=== PATIENT | female | born 1960 | race Caucasian/White ===

== ENCOUNTER → 2016-05-17 | Outpatient (CLI) | payer MEDICARE, OTHER ==
[~2016-05-17] MED LIST: ALBU0.086 NEB; ALBU2.5I INH; ANTISOL30 EACH EAR; CALCCHW25 PO; CHOL50006 PO; DUONI NEB; FLON0.053; FOSA70TA PO; HYCO5UDC PO; MEDR4PAK3 PO; MMW SS; NEXI40CA PO
[2016-05-17 11:00] LABS: AUTOMATED NEUTROPHIL # 4.6 TH/MM3 (1.8-7.7); BASOPHIL # 0.1 TH/MM3 (0-0.2); BASOPHIL % 0.9 % (0.0-2.0); EOSINOPHIL # 0.1 TH/MM3 (0-0.4); EOSINOPHIL % 1.7 % (0.0-4.0); HEMATOCRIT 40.2 % (35.0-46.0); HEMO FLAGS DIFF FINAL; LYMPH % 35.1 % (9.0-44.0); LYMPHOCYTE # 2.9 TH/MM3 (1.0-4.8); MEAN CELL VOLUME 92.3 FL (80.0-100.0); MEAN CORPUSCULAR HEMOGLOBIN 32.1 PG (27.0-34.0); MEAN CORPUSCULAR HGB CONC 34.8 % (32.0-36.0); MONO % 7.5 % (0.0-8.0); NEUT % 54.8 % (16.0-70.0); PLATELET COUNT 247 TH/MM3 (150-450); RED BLOOD COUNT 4.36 MIL/MM3 (4.00-5.30); RED CELL DISTRIBUTION WIDTH 13.6 % (11.6-17.2); WHITE BLOOD COUNT 8.3 TH/MM3 (4.0-11.0)
[2016-05-17 11:01] LABS: BLOOD, URINE SMALL (NEG); CALCIUM OXALATE CRYSTALS,URINE OCC /hpf; GLUCOSE,URINE NEG (NEG); KETONE, URINE NEG (NEG); MUCUS URINE FEW /lpf (OCC); NITRITE,URINE NEG (NEG); PH, URINE 5.5 (5.0-8.5); SQUAMOUS EPITHELIAL CELL URINE 1 /hpf (0-5); URINE COLOR YELLOW (YELLW/STRAW)
[2016-05-17 11:02] LABS: COMMENT (UR) CULT NOT INDICATED; CULTURE IF INDICATED CULT NOT INDICATED
[2016-05-17 11:46] LABS: ALKALINE PHOSPHATASE 78 U/L (45-117); ALT (GPT) 25 U/L (10-53); ANION GAP 7 MEQ/L (5-15); AST (GOT) 16 U/L (15-37); BICARBONATE 27.9 MEQ/L (21.0-32.0); BLOOD UREA NITROGEN 13 MG/DL (7-18); CHLORIDE 105 MEQ/L (98-107); FREE T4 0.95 NG/DL (0.76-1.46); GLOMERULAR FILTRATION RATE 97 ML/MIN (>89); GLUCOSE,FASTING 96 MG/DL (74-99); HDL CHOLESTEROL 70.5 MG/DL (40.0-60.0); LDL CHOLESTEROL 25 MG/DL (0-99); POTASSIUM 3.9 MEQ/L (3.5-5.1); SODIUM (NA) 140 MEQ/L (136-145); TOTAL BILIRUBIN ADULT 0.2 MG/DL (0.2-1.0)
== END ==
LOC: CLAB 10:23
PROVIDERS: ATTEND Family Medicine
DX: E78.5 Hyperlipidemia, unspecified (principal); E78.00 Pure hypercholesterolemia, unspecified; D51.9 Vitamin B12 deficiency anemia, unspecified; D52.9 Folate deficiency anemia, unspecified; R82.90 Unspecified abnormal findings in urine; R53.81 Other malaise; R94.6 Abnormal results of thyroid function studies; E03.9 Hypothyroidism, unspecified; E55.9 Vitamin D deficiency, unspecified; N30.90 Cystitis, unspecified without hematuria; Z79.899 Other long term (current) drug therapy; Z01.01 Encounter for examination of eyes and vision with abnormal findings
CPT/HCPCS: 36415; 80053; 80061; 81001; 82306; 82607; 82746; 84439; 84443; 85025

== ENCOUNTER → 2016-08-29 | Outpatient (CLI) | payer MEDICARE, OTHER ==
[2016-08-29 08:56] LABS: AUTOMATED NEUTROPHIL # 4.5 TH/MM3 (1.8-7.7); BASOPHIL % 0.6 % (0.0-2.0); EOSINOPHIL # 0.1 TH/MM3 (0-0.4); EOSINOPHIL % 1.7 % (0.0-4.0); HEMATOCRIT 41.2 % (35.0-46.0); HEMO FLAGS DIFF FINAL; LYMPH % 28.4 % (9.0-44.0); LYMPHOCYTE # 2.1 TH/MM3 (1.0-4.8); MEAN CELL VOLUME 92.4 FL (80.0-100.0); MEAN CORPUSCULAR HEMOGLOBIN 31.3 PG (27.0-34.0); MEAN CORPUSCULAR HGB CONC 33.8 % (32.0-36.0); MONO % 8.8 % (0.0-8.0); NEUT % 60.5 % (16.0-70.0); PLATELET COUNT 237 TH/MM3 (150-450); RED BLOOD COUNT 4.46 MIL/MM3 (4.00-5.30); RED CELL DISTRIBUTION WIDTH 13.1 % (11.6-17.2); WHITE BLOOD COUNT 7.5 TH/MM3 (4.0-11.0)
[2016-08-29 09:11] LABS: ALT (GPT) 19 U/L (10-53); AMYLASE 40 U/L (25-115); ANION GAP 7 MEQ/L (5-15); AST (GOT) 14 U/L (15-37); BICARBONATE 27.8 MEQ/L (21.0-32.0); BLOOD UREA NITROGEN 10 MG/DL (7-18); CHLORIDE 105 MEQ/L (98-107); GLOMERULAR FILTRATION RATE 114 ML/MIN (>89); GLUCOSE,FASTING 92 MG/DL (74-99); POTASSIUM 4.1 MEQ/L (3.5-5.1); SODIUM (NA) 140 MEQ/L (136-145)
[2016-08-29 09:36] LABS: ALKALINE PHOSPHATASE 82 U/L (45-117); TOTAL BILIRUBIN ADULT 0.4 MG/DL (0.2-1.0)
[2016-08-29 09:39] LABS: WESTERGREN SEDIMENTATION RATE 23 mm/hr (0-30)
== END ==
LOC: CLAB 08:17
PROVIDERS: ATTEND Hospitalist
DX: K50.90 Crohn's disease, unspecified, without complications (principal)
CPT/HCPCS: 36415; 80053; 82150; 82306; 82607; 82746; 85025; 85652; 86140

== ENCOUNTER 2016-12-28 05:50 | Day surgery (SDC) | payer MEDICARE, OTHER ==
[~2016-12-28] VITALS: Ht 160 cm; Wt 63.0 kg
[2016-12-28] MEDS ORDERED: IOHEXOL 350 MG/ML 50 ML BTL (for Cath Lab) OTHER ONE (05:51)
[2016-12-28] MEDS ORDERED: ASPIRIN 81 MG CHEW TAB PO ONE (06:45)
[2016-12-28] MEDS ORDERED: HEPARIN-NS/PF INJ 1,000 ML ONE (07:19)
[2016-12-28] MEDS ORDERED: diphenhydrAMINE HCL 50 MG/ML VIAL ONE (07:30)
[2016-12-28] MEDS ORDERED: MIDAZOLAM HCL 2 MG/2 ML VIAL ONE (07:30)
[2016-12-28] MEDS ORDERED: AMLO5 PO (07:34)
[2016-12-28] MEDS ORDERED: VITA1000 PO (07:34)
[2016-12-28] MEDS ORDERED: LIPI10TA PO (07:34)
[2016-12-28] MEDS ORDERED: ISOS30TA3 PO (07:34)
[2016-12-28] MEDS ORDERED: ADVA100A INH (07:34)
[2016-12-28] MEDS ORDERED: VARE1 PO (07:34)
[2016-12-28] MEDS ORDERED: ESOM1CAP16 PO (07:34)
[2016-12-28] MEDS ORDERED: PRED10PA PO (07:34)
[2016-12-28] MEDS ORDERED: BUDE3CAP PO (07:34)
[2016-12-28] MEDS ORDERED: EFFE10TA PO (07:34)
[2016-12-28] MEDS ORDERED: SPIRCAP INH (07:34)
[2016-12-28] MEDS ORDERED: VITA100021 SL (07:34)
[2016-12-28] MEDS ORDERED: VENTAER INH (07:34)
[2016-12-28 07:39] VITALS: BP 149/87; PULSE 92; RESP 18; TEMP 98.1; O2SAT 97
[2016-12-28 07:57] LABS: AUTOMATED NEUTROPHIL # 5.1 TH/MM3 (1.8-7.7); BASOPHIL % 0.1 % (0.0-2.0); HEMATOCRIT 41.9 % (35.0-46.0); HEMO FLAGS DIFF FINAL; LYMPH % 14.5 % (9.0-44.0); LYMPHOCYTE # 0.9 TH/MM3 (1.0-4.8); MEAN CELL VOLUME 92.7 FL (80.0-100.0); MEAN CORPUSCULAR HEMOGLOBIN 31.8 PG (27.0-34.0); MEAN CORPUSCULAR HGB CONC 34.3 % (32.0-36.0); MONO % 0.9 % (0.0-8.0); NEUT % 84.5 % (16.0-70.0); PLATELET COUNT 231 TH/MM3 (150-450); RED BLOOD COUNT 4.51 MIL/MM3 (4.00-5.30); RED CELL DISTRIBUTION WIDTH 13.4 % (11.6-17.2); WHITE BLOOD COUNT 6.1 TH/MM3 (4.0-11.0)
[2016-12-28 08:13] LABS: BICARBONATE 27.4 MEQ/L (21.0-32.0); POTASSIUM 3.9 MEQ/L (3.5-5.1)
[2016-12-28 08:15] LABS: INTERNATIONAL NORMALIZED RATIO 0.9 RATIO; PROTHROMBIN TIME - PATIENT 9.8 SEC (9.8-11.6)
[2016-12-28] MEDS ORDERED: MISC INFORMATION XX ONE (08:30)
[2016-12-28] MEDS ORDERED: SODIUM CHLORIDE 0.9% FLUSH 10 ML FLUSH IV FLUSH PRN (08:45)
[2016-12-28] MEDS ORDERED: SODIUM CHLORIDE 0.9% FLUSH 10 ML FLUSH IV FLUSH SCH (09:00)
[2016-12-28] MEDS ORDERED: BACITRACIN OINT 0.9 GM PKT TOP ONE (09:30)
[2016-12-28 10:20] LABS: HDL CHOLESTEROL 95.8 MG/DL (40.0-60.0); INDIRECT BILIRUBIN 0.3 MG/DL (0.0-0.8); TOTAL BILIRUBIN ADULT 0.4 MG/DL (0.2-1.0)
--- NOTE | 2016-12-28 11:16 | MA ---
cc: AMEENA MEAD M.D. DATE: 12/28/2016 PROCEDURE 1. Right heart catheterization. 2. Left heart catheterization. 3. Left ventriculography. 4. Coronary angiography. INDICATION Anginal equivalent, severe dyspnea on exertion at 3 minutes of the Jamaal protocol, unstable angina, [place] [employer] Class III angina, [place] [employer] Class III congestive heart failure, systemic inflammatory condition, Crohn's disease, tobacco use, coronary artery disease. PROCEDURAL STATEMENTS The patient was brought to the cardiac catheterization laboratory and prepped and draped in the usual sterile fashion. 10 cc of 1% lidocaine was used to locally anesthetize the right common femoral artery. A 4 Jordanian sheath was successfully placed in the right common femoral artery, a 7 Jordanian sheath in right common femoral vein. Right heart catheterization was performed first with the following findings: Pulmonary capillary wedge pressure was 8/7-3. PA pressure 24/10-17. RV pressure 27/9-10. RA pressure 8/4-3. On room air the femoral artery sat was 94%. The pulmonary artery sat was 77.3%. The RA sat was 79.3%. The left heart catheterization was then performed with a 4 Jordanian JR4 and JL4 catheter with the following findings: LV pressure 170/0-5. Ejection fraction 75%. The right coronary artery is dominant. It is fibrocalcific fluoroscopically. In the proximal segment it has a long 50% prox-mid stenosis. The left main coronary artery is slightly fibrocalcific fluoroscopically, has no significant obstructive disease. The left circumflex vessel has no significant disease angiographically. The first obtuse marginal vessel is a large vessel which has a distal bifurcation and approaches the apex. It has a prox-mid 40% stenosis. It is mildly fibrocalcific at the segment of stenosis. The LAD is transapical. It has a long 50% prox-mid stenosis. The vessel is fibrocalcific in the prox-mid segment. The LAD is transapical. The mid to distal segment of the vessel is tortuous and has a focal 50% stenosis. CONCLUSIONS 1. Angiographically moderate three-vessel coronary artery disease in a right-dominant system as detailed above. 2. Fibrocalcific coronary artery disease in the prox-mid right coronary artery, prox-mid LAD and proximal OM as detailed above. 3. Hyperdynamic LV systolic function, ejection fraction 75%. 4. Normal right heart catheterization pressures as detailed above. 5. No evidence of intracardiac shunt by saturation analysis. PLAN/RECOMMENDATIONS 1. Strongly recommend smoking cessation and I have advised the patient myself personally to discontinue smoking. 2. I have advised the patient to start a baby aspirin 81 mg daily. 3. I have ordered fasting lipids, ALT and CPK in order to initiate statin therapy. 4. The patient will follow-up with me on December 31, 2016 for further evaluation and management as an outpatient. Ameena Mead MD AWCollin/BT /8:03 AM /10:51 AM
== END 2016-12-28 11:37 | disposition home or self-care (01) ==
LOC: HDOC 05:50 → HDIC 05:51 → HDOC 11:37
PROVIDERS: ATTEND Internal Medicine Interventional Cardiology
DX: I25.110 Atherosclerotic heart disease of native coronary artery with unstable angina pectoris (principal); K50.90 Crohn's disease, unspecified, without complications; Z72.0 Tobacco use
CPT/HCPCS: 80048; 80061; 80076; 82550; 85025; 85610; 93460; C1769; C1893; J1200; J1644; J2250; Q9967

== ENCOUNTER → 2017-02-25 | Outpatient (CLI) | payer MEDICARE, OTHER ==
[~2017-02-25] MED LIST changes: +ADVA100A INH; -ALBU0.086 NEB; -ALBU2.5I INH; +AMLO5 PO; -ANTISOL30 EACH EAR; +BUDE3CAP PO; -CALCCHW25 PO; -CHOL50006 PO; -DUONI NEB; +EFFE10TA PO; +ESOM1CAP16 PO; -FLON0.053; -FOSA70TA PO; -HYCO5UDC PO; +ISOS30TA3 PO; +LIPI10TA PO; -MEDR4PAK3 PO; -MMW SS; -NEXI40CA PO; +PRED10PA PO; +SPIRCAP INH; +VARE1 PO; +VENTAER INH; +VITA1000 PO; +VITA100021 SL
[2017-02-25 11:06] LABS: AUTOMATED NEUTROPHIL # 6.2 TH/MM3 (1.8-7.7); BASOPHIL # 0.1 TH/MM3 (0-0.2); BASOPHIL % 0.9 % (0.0-2.0); EOSINOPHIL # 0.1 TH/MM3 (0-0.4); EOSINOPHIL % 0.6 % (0.0-4.0); HEMOGLOBIN 14.4 GM/DL (11.6-15.3); LYMPH % 22.4 % (9.0-44.0); MEAN CELL VOLUME 93.9 FL (80.0-100.0); MEAN CORPUSCULAR HEMOGLOBIN 32.1 PG (27.0-34.0); MEAN CORPUSCULAR HGB CONC 34.2 % (32.0-36.0); MONO % 7.4 % (0.0-8.0); MONOCYTE # 0.7 TH/MM3 (0-0.9); NEUT % 68.7 % (16.0-70.0); PLATELET COUNT 221 TH/MM3 (150-450); RED BLOOD COUNT 4.48 MIL/MM3 (4.00-5.30); RED CELL DISTRIBUTION WIDTH 14.1 % (11.6-17.2)
[2017-02-25 11:22] LABS: ALBUMIN 3.5 GM/DL (3.4-5.0); AST (GOT) 17 U/L (15-37); BICARBONATE 27.3 MEQ/L (21.0-32.0); BLOOD UREA NITROGEN 13 MG/DL (7-18); CALCIUM 9.2 MG/DL (8.5-10.1); CHLORIDE 104 MEQ/L (98-107); CREATININE 0.71 MG/DL (0.50-1.00); GLOMERULAR FILTRATION RATE 85 ML/MIN (>89); GLUCOSE,FASTING 120 MG/DL (74-99); SODIUM (NA) 137 MEQ/L (136-145)
[2017-02-25 11:23] LABS: ALT (GPT) 22 U/L (10-53); CHOLESTEROL 166 MG/DL (120-200); TRIGLYCERIDES 108 MG/DL (42-150)
[2017-02-25 11:25] LABS: ALKALINE PHOSPHATASE 90 U/L (45-117); CHOLESTEROL/ HDL RATIO 1.72 RATIO; HDL CHOLESTEROL 96.4 MG/DL (40.0-60.0); LDL CHOLESTEROL 48 MG/DL (0-99); TOTAL BILIRUBIN ADULT 0.3 MG/DL (0.2-1.0); TOTAL PROTEIN 7.1 GM/DL (6.4-8.2)
== END ==
LOC: CLAB 10:31
PROVIDERS: ATTEND Family Medicine
DX: E78.00 Pure hypercholesterolemia, unspecified (principal); I10 Essential (primary) hypertension; Z79.891 Long term (current) use of opiate analgesic
CPT/HCPCS: 36415; 80053; 80061; 85025

== ENCOUNTER → 2017-03-06 | Outpatient (CLI) | payer MEDICARE, OTHER ==
[2017-03-06 10:03] LABS: ALBUMIN 3.6 GM/DL (3.4-5.0); C-REACTIVE PROTEIN 0.33 MG/DL (0.00-0.30); DIRECT BILIRUBIN ADULT 0.1 MG/DL (0.0-0.2)
[2017-03-06 10:05] LABS: INDIRECT BILIRUBIN 0.2 MG/DL (0.0-0.8); TOTAL BILIRUBIN ADULT 0.3 MG/DL (0.2-1.0); TOTAL PROTEIN 7.3 GM/DL (6.4-8.2)
[2017-03-08 20:17] LABS: MITOGEN MINUS NIL RESULT 7.88 IU/mL; NIL RESULT 0.03 IU/mL; QUANTIFERON TB GOLD RESULT Negative (Negative)
== END ==
LOC: CLAB 08:11
PROVIDERS: ATTEND Internal Medicine Gastroenterology
DX: K50.90 Crohn's disease, unspecified, without complications (principal); R10.32 Left lower quadrant pain; K52.9 Noninfective gastroenteritis and colitis, unspecified
CPT/HCPCS: 36415; 80076; 86140; 86480

== ENCOUNTER → 2017-04-19 | Outpatient (CLI) | payer MEDICARE, OTHER ==
[2017-04-19 08:28] LABS: AUTOMATED NEUTROPHIL # 3.7 TH/MM3 (1.8-7.7); BASOPHIL % 0.6 % (0.0-2.0); EOSINOPHIL # 0.2 TH/MM3 (0-0.4); EOSINOPHIL % 2.8 % (0.0-4.0); HEMOGLOBIN 14.1 GM/DL (11.6-15.3); LYMPH % 25.8 % (9.0-44.0); LYMPHOCYTE # 1.5 TH/MM3 (1.0-4.8); MEAN CELL VOLUME 92.1 FL (80.0-100.0); MEAN CORPUSCULAR HEMOGLOBIN 31.6 PG (27.0-34.0); MEAN CORPUSCULAR HGB CONC 34.3 % (32.0-36.0); MEAN PLATELET VOLUME 7.4 FL (7.0-11.0); MONOCYTE # 0.5 TH/MM3 (0-0.9); NEUT % 61.8 % (16.0-70.0); PLATELET COUNT 271 TH/MM3 (150-450); RED BLOOD COUNT 4.44 MIL/MM3 (4.00-5.30); RED CELL DISTRIBUTION WIDTH 13.7 % (11.6-17.2); WHITE BLOOD COUNT 5.9 TH/MM3 (4.0-11.0)
[2017-04-19 08:45] LABS: ALBUMIN 3.7 GM/DL (3.4-5.0); ALT (GPT) 28 U/L (10-53); AST (GOT) 25 U/L (15-37); BICARBONATE 30.2 MEQ/L (21.0-32.0); BLOOD UREA NITROGEN 11 MG/DL (7-18); CALCIUM 9.3 MG/DL (8.5-10.1); CHLORIDE 102 MEQ/L (98-107); CREATININE 0.63 MG/DL (0.50-1.00); GLOMERULAR FILTRATION RATE 97 ML/MIN (>89); GLUCOSE,FASTING 80 MG/DL (74-99); SODIUM (NA) 139 MEQ/L (136-145)
[2017-04-19 08:48] LABS: ALKALINE PHOSPHATASE 120 U/L (45-117); TOTAL BILIRUBIN ADULT 0.4 MG/DL (0.2-1.0); TOTAL PROTEIN 7.5 GM/DL (6.4-8.2)
== END ==
LOC: CLAB 07:49
PROVIDERS: ATTEND Family Medicine
DX: I10 Essential (primary) hypertension (principal); E78.00 Pure hypercholesterolemia, unspecified
CPT/HCPCS: 36415; 80053; 82550; 85025

== ENCOUNTER → 2017-05-17 | Outpatient (CLI) | payer MEDICARE, OTHER ==
[2017-05-17 08:33] LABS: ALT (GPT) 20 U/L (10-53)
[2017-05-17 08:34] LABS: ALBUMIN 3.7 GM/DL (3.4-5.0); AST (GOT) 26 U/L (15-37); BICARBONATE 30.1 MEQ/L (21.0-32.0); BLOOD UREA NITROGEN 12 MG/DL (7-18); CALCIUM 9.3 MG/DL (8.5-10.1); CHLORIDE 103 MEQ/L (98-107); CREATININE 0.77 MG/DL (0.50-1.00); GLOMERULAR FILTRATION RATE 77 ML/MIN (>89); GLUCOSE,FASTING 111 MG/DL (74-99); SODIUM (NA) 139 MEQ/L (136-145)
[2017-05-17 08:35] LABS: ALKALINE PHOSPHATASE 85 U/L (45-117); TOTAL BILIRUBIN ADULT 0.4 MG/DL (0.2-1.0); TOTAL PROTEIN 7.5 GM/DL (6.4-8.2)
== END ==
LOC: CLAB 07:22
PROVIDERS: ATTEND Internal Medicine Gastroenterology
DX: K50.90 Crohn's disease, unspecified, without complications (principal)
CPT/HCPCS: 36415; 80053; 82150

== ENCOUNTER → 2017-06-11 | Outpatient (CLI) | payer MEDICARE, OTHER ==
[2017-06-11 08:17] LABS: AUTOMATED NEUTROPHIL # 4.3 TH/MM3 (1.8-7.7); BASOPHIL % 0.5 % (0.0-2.0); EOSINOPHIL # 0.2 TH/MM3 (0-0.4); EOSINOPHIL % 2.4 % (0.0-4.0); HEMATOCRIT 41.1 % (35.0-46.0); HEMOGLOBIN 13.9 GM/DL (11.6-15.3); LYMPHOCYTE # 1.9 TH/MM3 (1.0-4.8); MEAN CELL VOLUME 92.4 FL (80.0-100.0); MEAN CORPUSCULAR HEMOGLOBIN 31.1 PG (27.0-34.0); MEAN CORPUSCULAR HGB CONC 33.7 % (32.0-36.0); MEAN PLATELET VOLUME 7.6 FL (7.0-11.0); MONO % 8.3 % (0.0-8.0); MONOCYTE # 0.6 TH/MM3 (0-0.9); NEUT % 61.8 % (16.0-70.0); PLATELET COUNT 251 TH/MM3 (150-450); RED BLOOD COUNT 4.45 MIL/MM3 (4.00-5.30); RED CELL DISTRIBUTION WIDTH 14.6 % (11.6-17.2); WHITE BLOOD COUNT 6.9 TH/MM3 (4.0-11.0)
[2017-06-11 08:32] LABS: ALBUMIN 3.9 GM/DL (3.4-5.0); AST (GOT) 19 U/L (15-37); BICARBONATE 29.8 MEQ/L (21.0-32.0); BLOOD UREA NITROGEN 11 MG/DL (7-18); CALCIUM 9.4 MG/DL (8.5-10.1); CHLORIDE 107 MEQ/L (98-107); GLOMERULAR FILTRATION RATE 86 ML/MIN (>89); GLUCOSE,FASTING 82 MG/DL (74-99); SODIUM (NA) 142 MEQ/L (136-145)
[2017-06-11 08:33] LABS: ALT (GPT) 19 U/L (10-53); CHOLESTEROL 154 MG/DL (120-200)
[2017-06-11 08:35] LABS: ALKALINE PHOSPHATASE 95 U/L (45-117); CHOLESTEROL/ HDL RATIO 2.16 RATIO; HDL CHOLESTEROL 71.1 MG/DL (40.0-60.0); LDL CHOLESTEROL 56 MG/DL (0-99); TOTAL BILIRUBIN ADULT 0.4 MG/DL (0.2-1.0); TOTAL PROTEIN 7.9 GM/DL (6.4-8.2); TRIGLYCERIDES 133 MG/DL (42-150)
[2017-06-11 16:19] LABS: HEMOGLOBIN A1C 5.4 % (4.3-6.0)
== END ==
LOC: CLAB 07:34
PROVIDERS: ATTEND Family Medicine
DX: E78.00 Pure hypercholesterolemia, unspecified (principal); D64.9 Anemia, unspecified; I10 Essential (primary) hypertension; D56.5 Hemoglobin E-beta thalassemia; E78.5 Hyperlipidemia, unspecified; E55.9 Vitamin D deficiency, unspecified; R73.09 Other abnormal glucose; Z79.891 Long term (current) use of opiate analgesic
CPT/HCPCS: 36415; 80053; 80061; 82306; 83036; 85025

== ENCOUNTER → 2017-07-12 | Outpatient (CLI) | payer MEDICARE, OTHER ==
[2017-07-12 09:28] LABS: AUTOMATED NEUTROPHIL # 3.6 TH/MM3 (1.8-7.7); BASOPHIL % 0.7 % (0.0-2.0); EOSINOPHIL # 0.2 TH/MM3 (0-0.4); EOSINOPHIL % 2.7 % (0.0-4.0); HEMATOCRIT 43.9 % (35.0-46.0); HEMOGLOBIN 14.5 GM/DL (11.6-15.3); LYMPH % 27.9 % (9.0-44.0); LYMPHOCYTE # 1.7 TH/MM3 (1.0-4.8); MEAN CELL VOLUME 93.2 FL (80.0-100.0); MEAN CORPUSCULAR HEMOGLOBIN 30.8 PG (27.0-34.0); MEAN CORPUSCULAR HGB CONC 33.1 % (32.0-36.0); MEAN PLATELET VOLUME 8.4 FL (7.0-11.0); MONO % 8.4 % (0.0-8.0); MONOCYTE # 0.5 TH/MM3 (0-0.9); NEUT % 60.3 % (16.0-70.0); PLATELET COUNT 232 TH/MM3 (150-450); RED CELL DISTRIBUTION WIDTH 14.9 % (11.6-17.2)
[2017-07-12 09:35] LABS: INTERNATIONAL NORMALIZED RATIO 0.9 RATIO; PROTHROMBIN TIME - PATIENT 9.4 SEC (9.8-11.6)
[2017-07-12 09:43] LABS: ALBUMIN 4.2 GM/DL (3.4-5.0); AST (GOT) 23 U/L (15-37); BICARBONATE 28.6 MEQ/L (21.0-32.0); BLOOD UREA NITROGEN 12 MG/DL (7-18); CALCIUM 9.4 MG/DL (8.5-10.1); CHLORIDE 104 MEQ/L (98-107); CREATININE 0.65 MG/DL (0.50-1.00); GLOMERULAR FILTRATION RATE 94 ML/MIN (>89); GLUCOSE,FASTING 70 MG/DL (74-99); SODIUM (NA) 144 MEQ/L (136-145)
[2017-07-12 09:51] LABS: WESTERGREN SEDIMENTATION RATE 18 mm/hr (0-30)
[2017-07-12 10:08] LABS: % SATURATION IRON PROFILE 16.4 % (20-50); ALKALINE PHOSPHATASE 109 U/L (45-117); ALT (GPT) 25 U/L (10-53); C-REACTIVE PROTEIN 0.46 MG/DL (0.00-0.30); FOLATE 19.5 NG/ML (3.1-17.5); IRON (FE) 79 MCG/DL (50-170); TOTAL BILIRUBIN ADULT 0.4 MG/DL (0.2-1.0); TOTAL IRON BINDING CAPACITY 482 MCG/DL (250-450); TOTAL PROTEIN 7.5 GM/DL (6.4-8.2)
== END ==
LOC: CLAB 07:20
DX: K50.914 Crohn's disease, unspecified, with abscess (principal)
CPT/HCPCS: 36415; 80053; 80074; 82607; 82746; 83540; 83550; 85025; 85610; 85652; 86140; 86480

== ENCOUNTER → 2017-07-22 | Outpatient (CLI) | payer MEDICARE, OTHER ==
[2017-07-23 14:27] LABS: FECAL FAT COLLECTION DURATION Random h; FECAL FAT TOTAL WEIGHT 4 g
== END ==
LOC: CLAB 07:43
PROVIDERS: ATTEND Internal Medicine Gastroenterology
DX: K50.914 Crohn's disease, unspecified, with abscess (principal)
CPT/HCPCS: 82272; 82710; 83993; 87205; 87328; 87329; 87493